=== PATIENT | male | born 1975 | race Caucasian/White ===

== ENCOUNTER 2018-07-11 17:05 | Inpatient (IN) | payer SELFPAY ==
[2018-07-11] VITALS: BP 125/67
[~2018-07-11] VITALS: Ht 170.2 cm; Wt 83.0 kg
[~2018-07-11 17:05] MED LIST: ACET-8386 PO; CIPR500T4 PO; TAMS0.4C96 PO
--- NOTE | 2018-07-11 17:10 | NUR ---
PT ARRIVED ON UNIT AT 1710. BEDSIDE REPORT GIVEN BY ED RN LINO, REPORTED THAT PT RECEIVED MORPHINE 15 MINS PRIOR TO ARRIVAL TO UNIT. PT AWAKE ABLE TO FOLLOW COMMANDS, IV IN RIGHT AC 20 G SL, PATENT AND DRESSING INTACT. AT BEDSIDE, NO REPORTS OF PAIN AT THIS TIME. NOTED SCANT BLOOD ON PENILE TIP. V/S: B/P 133/81, HR 64, RR 16, O2SAT 99%.BED IN LOWEST POSITION, CALL LIGHT WITHIN REACH.
[2018-07-11 17:13] VITALS: BP 135/84
--- NOTE | 2018-07-11 17:15 | NUR ---
PT AMBULATED TO ED BED 12 REPOERT TO KOBI JAVIER
[2018-07-11] MEDS ORDERED: NACL 0.9% 500 ML IV ONE (17:18)
[2018-07-11] MEDS ORDERED: KETOROLAC 30 MG/ML VIAL IVP ONE (17:20)
--- NOTE | 2018-07-11 17:30 | NUR ---
42M BIB WITH C/O 5/10 PENILE PAIN D/T "KIDNEY STONE STUCK IN PENIS". PT CAME FROM [facility]. PER PT, PT FOUND TO HAVE KIDNEY STONE BY PRIMARY PHYSICIAN AND WAS TOLD TO COME HERE TO BE EVALUATED. 5/10 PAIN IN BLADDER. DENIES N/V/D. PT IS AOX4 TO PERSON, PLACE, SITUATION, AND TIME. PT CHANGED INTO GOWN. PT POSITIONED TO COMFORT. WILL CONTINUE TO MONITOR.
[2018-07-11 17:58] LABS: APPEARANCE,URINE HAZY (CLEAR); BILIRUBIN,URINE NEGATIVE (NEGATIVE); BLOOD, URINE 3+ (NEGATIVE); COLOR,URINE RED (YELLOW); LEUKOCYTE ESTERASE ,URINE TRACE (NEGATIVE); NITRITE, URINE NEGATIVE (NEGATIVE); PH,URINE 6.5 (5.0-9.0); UGLUCOSE NEGATIVE (NEGATIVE)
--- NOTE | 2018-07-11 18:02 | NUR ---
PATIENT REFUSING IV AND IV MEDICATION AT THIS TIME. INFORMED ER MD SCHAEFFER.
[2018-07-11 18:16] LABS: RBC,URINE TOO NUMEROUS TO COUN /HPF (0-5); WBC,URINE 0-5 (RARE) /HPF (0-5)
--- NOTE | 2018-07-11 18:18 | NUR ---
ER MD SCHAEFFER BY BEDSIDE, ADMITTED TO EXTRACT PENILE STONE WITH CURVED AUERLIANO. BLEEDING NOTED TO PENILE OPENING BEFORE STARTING EXTRACTION. ER MD SCHAEFFER ABLE TO EXTRAST ONE PENILE STONE, APPROX 1.0 CM IN SIZE. PT TOLERATED WELL.
[2018-07-11] MEDS ORDERED: LIDOCAINE JELLY 2% 30 ML TUBE TP ONE (18:19)
[2018-07-11] MEDS ORDERED: MORPHINE SULFATE 2 MG/ML SYR IVP ONE (18:20)
[2018-07-11] MEDS ORDERED: NACL 0.9% 1,000 ML IV SCH (18:31)
[2018-07-11] MEDS ORDERED: ACETAMINOPHEN 325 MG TAB PO PRN (18:35)
[2018-07-11] MEDS ORDERED: HYDROcodone/APAP 7.5/325 MG 1 TAB PO PRN (18:35)
[2018-07-11] MEDS ORDERED: ONDANSETRON 4 MG/2 ML VIAL IVP PRN (18:35)
[2018-07-11 19:00] LABS: BASOPHILS # (AUTO) 0.1 K/uL (0.00-0.22); EOSINOPHILS # (AUTO) 0.2 K/uL (0-0.4); EOSINOPHILS % (AUTO) 2.7 % (0.0-4.0); HEMOGLOBIN 14.8 g/dL (12.0-18.0); LYMPHOCYTES # (AUTO) 1.5 K/uL (2.0-11.5); LYMPHOCYTES % (AUTO) 20.5 % (20.5-51.1); MEAN CORPUSCULAR HEMOGLOBIN 29 pg (27-31); MEAN CORPUSCULAR HGB CONC 34 g/dL (33-37); MEAN CORPUSCULAR VOLUME 84.9 fL (80-94); MONOCYTES # (AUTO) 0.6 K/uL (0.8-1.0); MONOCYTES % (AUTO) 8.3 % (1.7-9.3); NEUTROPHILS # (AUTO) 5.1 K/uL (1.8-7.7); NEUTROPHILS % (AUTO) 67.5 % (42.2-75.2); PLATELET COUNT (AUTO) 273 K/uL (140-450); RED BLOOD CELL COUNT(AUTO) 5.07 MIL/uL (4.20-6.10); RED CELL DISTRIBUTION WIDTH 13.6 % (11.6-13.7); WHITE BLOOD COUNT (AUTO) 7.5 K/uL (4.8-10.8)
--- NOTE | 2018-07-11 19:01 | NUR ---
Patient will be admitted to care of Nam. Admited to Med/Surg. Bedside will go to room 123-A. Belongings list completed. Bedside report to Aminata JAVIER.
--- NOTE | 2018-07-11 19:01 | NUR ---
PT TAKEN TO FLOOR BY YAYA PEACE AND EMT REESE
[2018-07-11 19:31] LABS: ANION GAP 14.3 (8-16); CARBON DIOXIDE 24.5 mmol/L (21-32); CREATININE 0.8 mg/dL (0.7-1.3); POTASSIUM 3.8 mmol/L (3.5-5.1)
[2018-07-11 19:34] LABS: CHOL/HDL RATIO 5.1 (1-4.5); FREE T4 (FREE THYROXINE) 0.96 ng/dL (0.76-1.46); MAGNESIUM 2.1 mg/dL (1.8-2.4); THYROID STIMULATING HORMONE 1.13 uIU/mL (0.34-3.74)
[2018-07-11 19:35] LABS: ALBUMIN 3.7 g/dL (3.4-5.0); TOTAL BILIRUBIN 1.2 mg/dL (0.0-1.0)
[2018-07-11 19:35] LABS: BARBITURATE, URINE NEG. ng/ml (NEG <=200); BENZODIAZEPINE, URINE NEG. ng/mL (NEG <=200); CANNABINOID, URINE NEG. ng/mL (NEG <=50); COCAINE, URINE NEG. ng/mL (NEG <=300); OPIATE, URINE NEG. ng/mL (NEG <=2000); PHENCYCLIDINE SCREEN,URINE NEG. ng/mL (NEG <=25)
[2018-07-11 20:05] LABS: PROTHROMBIN TIME 10.4 secs (10.8-13.4)
[2018-07-11] MEDS: TAMSULOSIN 0.4 MG CAP PO SCH (20:43)
[2018-07-11] MEDS: DOCUSATE SODIUM 100 MG GELCAP PO SCH (20:43)
--- NOTE | 2018-07-11 20:43 | NUR ---
DUE MEDICATIONS GIVEN PT TOLERATED WELL, SCD APPLIED TO PT, MRSA SAMPLE TAKEN WILL SEND TO LAB. CALL LIGHT WITHIN REACH WILL CONTINUE TO MONITOR.
--- NOTE | 2018-07-11 21:30 | NUR ---
20 ML OF BLOODY URINE NOTED. WILL CONTINUE TO MONITOR.
--- NOTE | 2018-07-11 21:48 | NUR ---
PT LEFT TO CT SCAN OF ABDOMEN. PT STABLE.
--- NOTE | 2018-07-11 22:30 | NUR ---
LENS ASSISTANT [facility] #[id number] USED FOR ADMISSION.
--- NOTE | 2018-07-11 22:40 | NUR ---
PICTURE OF PENILE WOUND TAKEN AND IN CHART.
[2018-07-12] VITALS: BP 125/67
--- NOTE | 2018-07-12 00:37 | NUR ---
DISREGARD V/S NOTE FOR 07/11 0000.
[2018-07-12] MEDS: KETOROLAC 15 MG/ML VIAL IVP SCH ×4 (00:49→18:00)
--- NOTE | 2018-07-12 03:40 | NUR ---
PT ASLEEP IN BED, NO SIGNS OF ACUTE DISTRESS, CALL LIGHT WITHIN REACH, WILL CONTINUE TO MONITOR.
--- NOTE | 2018-07-12 04:30 | NUR ---
URINE OUTPUT 400 ML DARK YELLOW URINE, NO BLOOD VISIBLE, STRAINED URINE AND NO SEDIMENTS SEEN. WILL CONTINUE TO MONITOR.
--- NOTE | 2018-07-12 06:03 | NUR ---
PT STATED "NO" WHEN ASKED IF IN PAIN. PT STATED "NO THANK YOU" WHEN ASKED IF NEEDED SCHEDULED TORADOL. WILL HOLD TORADOL.
[2018-07-12] MEDS: DEXT 5% / NACL 0.45% 1,000 ML IV SCH (06:08)
[2018-07-12 06:41] LABS: BASOPHILS # (AUTO) 0.1 K/uL (0.00-0.22); BASOPHILS % (AUTO) 1.4 % (0.0-2.0); EOSINOPHILS # (AUTO) 0.2 K/uL (0-0.4); EOSINOPHILS % (AUTO) 2.3 % (0.0-4.0); HEMATOCRIT 43.5 % (36-52); LYMPHOCYTES # (AUTO) 1.5 K/uL (2.0-11.5); LYMPHOCYTES % (AUTO) 22.4 % (20.5-51.1); MEAN CORPUSCULAR HEMOGLOBIN 29 pg (27-31); MEAN CORPUSCULAR HGB CONC 35 g/dL (33-37); MEAN CORPUSCULAR VOLUME 84.7 fL (80-94); MONOCYTES # (AUTO) 0.4 K/uL (0.8-1.0); MONOCYTES % (AUTO) 6.5 % (1.7-9.3); NEUTROPHILS # (AUTO) 4.6 K/uL (1.8-7.7); NEUTROPHILS % (AUTO) 67.4 % (42.2-75.2); PLATELET COUNT (AUTO) 257 K/uL (140-450); RED BLOOD CELL COUNT(AUTO) 5.13 MIL/uL (4.20-6.10); RED CELL DISTRIBUTION WIDTH 13.6 % (11.6-13.7); WHITE BLOOD COUNT (AUTO) 6.8 K/uL (4.8-10.8)
[2018-07-12 06:58] LABS: ANION GAP 12.2 (8-16); CARBON DIOXIDE 25.5 mmol/L (21-32); CREATININE 0.9 mg/dL (0.7-1.3); PHOSPHORUS 3.2 mg/dL (2.5-4.9); POTASSIUM 3.7 mmol/L (3.5-5.1)
--- NOTE | 2018-07-12 07:05 | NUR ---
BEDSIDE REPORT GIVEN TO DAY SHIFT RN YOSEF, PT STABLE.
--- NOTE | 2018-07-12 07:17 | NUR ---
BEDSIDE REPORT GIVEN TO DAY SHIFT ALBIN LUNDBERG. Addendum: 07/12/18 at 0721 by Aminata Us RN TIME 0705
--- NOTE | 2018-07-12 07:20 | NUR ---
RECEIVED REPORT FROM STERILIZATION TECHNICIAN NURSE, PT IS RESTING IN BED, AAOX4, AMBULATORY, IV IS ON THE RIGHT AC, PATENT, INTACT, FLUSHING WELL, NO S/S OF RESPIRATORY DISTRESS OR DISCOMFORT NOTED, DISCUSSED PLAN OF CARE WITH PT, PT VERBALIZED UNDERSTANDING, SAFETY/FALL PRECAUTIONS ARE IN PLACE, CALL LIGHT IS WITHIN REACH, WILL CONTINUE TO MONITOR.
[2018-07-12 08:00] VITALS: BP 120/74
[2018-07-12] MEDS: DOCUSATE SODIUM 100 MG GELCAP PO SCH ×2 (08:29→20:11)
--- NOTE | 2018-07-12 08:49 | NUR ---
PATIENT HAS BEEN SCREENED AND CATEGORIZED HIGH NUTRITION RISK. PATIENT WILL BE SEEN WITHIN 1-2 DAYS OF ADMISSION. 07/12/18 07/13/[address]
--- NOTE | 2018-07-12 12:26 | NUR ---
PT IS RESTING IN BED, NO S/S OF RESPIRATORY DISTRESS OR DISCOMFORT NOTED, FAMILY IS AT BEDSIDE, CALL LIGHT WITHIN REACH.
--- NOTE | 2018-07-12 13:31 | NUR ---
07/12/18 RD INITIAL ASSESSMENT COMPLETED PLEASE REFER TO NUTRITION ASSESSMENT UNDER CARE ACTIVITY FOR ESTIMATED NUTRITIONAL NEEDS. 1. CONTINUE NPO DIET TOLERATED 2. EDUCATION ON LOW CHOLESTEROL AND LOW NA DIET TO BE PROVIDED. 3. IF/WHEN MEDICALLY STABLE, CONSIDER ADVANCING DIET TO CARDIAC TOLERATED. 4. RD TO FOLLOW-UP 3-5 DAYS, MODERATE RISK. KEL CARRASQUILLO, RD
[2018-07-12 16:00] VITALS: BP 120/72
--- NOTE | 2018-07-12 17:00 | NUR ---
SPOKE TO DR. VARGHESE TO LET HIM KNOW THE PATIENT WAS ASKING WHAT TIME UROLOGIST WAS GOING TO COME IN AND IF HE COULD HAVE SOMETHING TO EAT. PER DR. VARGHESE, DR. DE THE UROLOGIST IS AWARE OF THE CONSULT BUT HE DOES NOT KNOW WHAT TIME HE WILL BE COMING IN. DR. VARGHESE SAID HE WOULD CHECK WITH DR. KEN IF PATIENT COULD EAT.
--- NOTE | 2018-07-12 19:15 | NUR ---
ENDORSED PT TO GUARD SUPERVISOR NURSE FOR CONTINUITY OF CARE. PT STABLE AT THIS TIME.
--- NOTE | 2018-07-12 19:16 | NUR ---
RECEIVED REPORT FROM DAYSHIFT NURSE AT BEDSIDE FOR CONTINUITY OF CARE.PT IV NOTED RAC 20G D5 1/2 NS 10ML/HR. NO SOB NO S/S OF DISTRESS ON ROOM AIR. AMBULATORY. PT HAS URINAL AT BEDSIDE AND STRAINS HIS URINE BY HIMSELF. BED LOWERED CALL LIGHT WITHIN REACH WILL CONTINUE TO MONITOR. SAMI SPEAKING PT.
--- NOTE | 2018-07-12 20:00 | NUR ---
SPOKE TO ABOUT IF UROLOGIST CONSULT WILL BE COMING TONIGHT HE STATED HE WOULD CALL MD. ALSO ASKED IF WE CAN PUT PT ON A REGULAR DIET UNTIL MIDNIGHT BECAUSE PT HAD BEEN NPO FOR MORE THAN 12HRS. MD AGREED AND GAVE PT SANDWICH. ORDER WAS PUT IN. WILL CONTINUE TO MONITOR.
[2018-07-12] MEDS: TAMSULOSIN 0.4 MG CAP PO SCH (20:10)
[2018-07-13] VITALS: BP 132/80
[2018-07-13] MEDS: KETOROLAC 15 MG/ML VIAL IVP SCH ×5 (00:30→23:32)
--- NOTE | 2018-07-13 01:30 | NUR ---
PT HAS PAIN IN PENIS WHILE TRYING TO URINATE MEDICATED WITH TORADOL 1HR. PAIN MEDICINE EFFECTIVE PT IS SLEEPING WILL CONTINUE TO MONITOR.
[2018-07-13] MEDS: DEXT 5% / NACL 0.45% 1,000 ML IV SCH (03:56)
--- NOTE | 2018-07-13 06:48 | NUR ---
ADMIN TORADOL FOR PAIN 1HR AGO. PT CURRENTLY SLEEPING. PAIN MED EFFECTIVE.
--- NOTE | 2018-07-13 07:28 | NUR ---
ENDORSED REPORT TO DAYSHIFT NURSE AT BEDSIDE FOR CONTINUITY OF CARE.
--- NOTE | 2018-07-13 07:35 | NUR ---
RECEIVED REPORT FROM C ENGINEER NURSE, PT IS RESTING IN BED, AAOX4, AMBULATORY, IV IS ON THE RIGHT AC, PATENT, INTACT, FLUSHING WELL, NO S/S OF RESPIRATORY DISTRESS OR DISCOMFORT NOTED, DISCUSSED PLAN OF CARE WITH PT, PT VERBALIZED UNDERSTANDING, SAFETY/FALL PRECAUTIONS ARE IN PLACE, CALL LIGHT IS WITHIN REACH, WILL CONTINUE TO MONITOR.
[2018-07-13 08:00] VITALS: BP 112/70
[2018-07-13] MEDS: DOCUSATE SODIUM 100 MG GELCAP PO SCH ×2 (09:26→20:48)
--- NOTE | 2018-07-13 09:26 | NUR ---
DUE MEDICATIONS GIVEN. PT TOLERATED WELL, CALL LIGHT WITHIN REACH.
--- NOTE | 2018-07-13 11:20 | NUR ---
PT RESTING IN BED, NO S/S OF DISTRESS NOTED, FAMILY IS AT BEDSIDE. CALL LIGHT WITHIN REACH.
--- NOTE | 2018-07-13 12:40 | NUR ---
PATIENT TAKEN OFF UNIT TAKEN TO OR FOR PROCEDURE.
[2018-07-13] MEDS ORDERED: PROPOFOL 200 MG/20 ML VIAL IV ONE (13:52)
[2018-07-13] MEDS ORDERED: SEVOFLURANE 250 ML BTL INH ONE (13:52)
[2018-07-13] MEDS ORDERED: ONDANSETRON 4 MG/2 ML VIAL ONE (13:52)
[2018-07-13] MEDS ORDERED: DEXAMETHASONE 4 MG/ML VIAL ONE (13:52)
[2018-07-13] MEDS ORDERED: fentaNYL 0.05 MG/ML VIAL ONE (13:57)
[2018-07-13] MEDS ORDERED: ceFAZolin 1,000 MG VIAL ONE (14:13)
--- NOTE | 2018-07-13 15:50 | NUR ---
PT RETURNED TO UNIT VIA GURNEY. PT IS AAOX4, NO S/S OF DISTRESS NOTED. PT HAS CRISOSTOMO CATHETER IN PLACE AT THIS TIME.
[2018-07-13 16:00] VITALS: BP 114/70
--- NOTE | 2018-07-13 19:21 | NUR ---
ENDORSED PT TO ANESTHESIA DIRECTOR NURSE FOR CONTINUITY OF CARE. PT STABLE AT THIS TIME. FAMILY IS AT BEDSIDE.
--- NOTE | 2018-07-13 19:22 | NUR ---
RECEIVED PT AWAKE ON BED TALKING TO FAMILY MEMBERS AT BEDSIDE, DENIES PAIN, CRISOSTOMO CATHETER IN PLACE DRAINING STRAW YELLOW URINE, NO BLEEDING NOTED, PER PT TOLERATING CLEAR LIQUID DIET, IVF INFUSING WELL, PLAN OF CARE DISCUSSED, CALL LIGHT WITHIN REACH.
[2018-07-13] MEDS: TAMSULOSIN 0.4 MG CAP PO SCH (20:46)
--- NOTE | 2018-07-13 21:00 | NUR ---
COMPLAINING OF PAIN, MEDICATED PRN WITH NORCO, ALL NEEDS ATTENDED.
--- NOTE | 2018-07-13 23:35 | NUR ---
VITAL SIGNS STABLE, PT WITH PAIN, DUE TORADOL IVP ADMINISTERED, NOTICED MINIMAL BLOOD ON CRISOSTOMO CATHETER TUBING, NO CLOTS NOTED, WILL CONTINUE TO MONITOR FOR BLEEDING, IVF INFUSING WELL.
[2018-07-14] VITALS: BP 102/58
--- NOTE | 2018-07-14 04:00 | NUR ---
ROUNDS MADE, PT SLEEPING, NO SIGNS OF DISTRESS, MINIMAL BLOOD NOTED ON CRISOSTOMO CATHETER TUBING, NO CLOTS NOTED, CONTINUE TO MONITOR CLOSELY.
[2018-07-14] MEDS: DEXT 5% / NACL 0.45% 1,000 ML IV SCH (05:40)
[2018-07-14] MEDS: KETOROLAC 15 MG/ML VIAL IVP SCH ×2 (05:41→12:10)
--- NOTE | 2018-07-14 05:51 | NUR ---
PT AWAKE COMPLAINING OF PAIN, MEDICATED WITH DUE TORADOL IVP, PINK URINE OUTPUT NOTED ON THE CRISOSTOMO CATH TUBING, NO CLOTS NOTED, EMPTIED 1100ML ON THE CRISOSTOMO CATHETER, MONITORED CLOSELY.
[2018-07-14 07:10] LABS: BASOPHILS % (AUTO) 0.6 % (0.0-2.0); EOSINOPHILS # (AUTO) 0.1 K/uL (0-0.4); EOSINOPHILS % (AUTO) 0.6 % (0.0-4.0); HEMATOCRIT 46.1 % (36-52); LYMPHOCYTES # (AUTO) 1.4 K/uL (2.0-11.5); LYMPHOCYTES % (AUTO) 17.1 % (20.5-51.1); MEAN CORPUSCULAR HEMOGLOBIN 29 pg (27-31); MEAN CORPUSCULAR HGB CONC 35 g/dL (33-37); MEAN CORPUSCULAR VOLUME 84.4 fL (80-94); MONOCYTES # (AUTO) 0.4 K/uL (0.8-1.0); MONOCYTES % (AUTO) 4.9 % (1.7-9.3); NEUTROPHILS # (AUTO) 6.5 K/uL (1.8-7.7); NEUTROPHILS % (AUTO) 76.8 % (42.2-75.2); PLATELET COUNT (AUTO) 280 K/uL (140-450); RED BLOOD CELL COUNT(AUTO) 5.46 MIL/uL (4.20-6.10); RED CELL DISTRIBUTION WIDTH 13.2 % (11.6-13.7); WHITE BLOOD COUNT (AUTO) 8.5 K/uL (4.8-10.8)
--- NOTE | 2018-07-14 07:10 | NUR ---
PT SLEEPING, NO SIGNS OF DISTRESS, BEDSIDE REPORT GIVEN TO DAVID SPRINGER FOR CONTINUITY OF CARE.
[2018-07-14 07:23] LABS: MAGNESIUM 2.2 mg/dL (1.8-2.4); PHOSPHORUS 3.8 mg/dL (2.5-4.9)
[2018-07-14 07:28] LABS: ANION GAP 10.3 (8-16); CARBON DIOXIDE 28.4 mmol/L (21-32); CREATININE 0.7 mg/dL (0.7-1.3); POTASSIUM 3.7 mmol/L (3.5-5.1)
--- NOTE | 2018-07-14 07:40 | NUR ---
PT NONCOMPLIANT AT THIS TIME Addendum: 07/14/18 at 0746 by Manas Ag RT INPUT ERROR WRONG PT
--- NOTE | 2018-07-14 07:52 | NUR ---
DR. PECK, RESIDENTS MD, AND CHARGE NURSE CAME AT PT. BEDSIDE FOR AM PT. ROUNDS.
[2018-07-14 08:00] VITALS: BP 121/67
[2018-07-14] MEDS: DOCUSATE SODIUM 100 MG GELCAP PO SCH (08:56)
--- NOTE | 2018-07-14 11:30 | NUR ---
SEEN WATCHING TV AT THIS TIME. NO DISCOMFORT NOTICED. CALL LIGHT WITHIN REACH.
[2018-07-14 12:00] VITALS: BP 137/77
[2018-07-14] MEDS ORDERED: ACET-8386 PO (13:22)
--- NOTE | 2018-07-14 14:20 | NUR ---
USED [employer] WITH HELMET BINDER NUMBER [id number]. EXPLAINED TO PT. ABOUT MD D/C ORDER, D/C INSTRUCTIONS AND TEACHING, MD D/C PRESCRIPTION LIST EDUCATION, [facility] FOLLOW UP IN 1 WEEK WITH PHONE NUMBER , CRISOSTOMO CATHETER MANAGEMENT EDUCATION, PAIN MANAGEMENT TEACHING, DIET, DISEASE MANAGEMENT TEACHING. VERBALIZED UNDERSTANDING. REFUSED PHOTO TAKEN ON TEAR AT PENILE.
--- NOTE | 2018-07-14 16:05 | NUR ---
D/C HOME VIA WHEELCHAIR ACCOMPANIED BY PT. . AWAKE, ALERT, AND ORIENTED X4. SPEECH CLEAR. NO C/O PAIN. NO SOB, NOTED. IN STABLE CONDITION. INFORMED CHARGE NURSE CA FARAH.
== END 2018-07-14 16:05 | disposition home or self-care (01) | DRG 694 ==
LOC: MED 17:05 → MTU 18:49
PROVIDERS: ADMIT General Practice; ATTEND General Practice
PROC: 0T7D8DZ Dilation of Urethra with Intraluminal Device, Via Natural or Artificial Opening Endoscopic (ICD-10-PCS; 2018-07-13)
PROC: 0TCD8ZZ Extirpation of Matter from Urethra, Via Natural or Artificial Opening Endoscopic (ICD-10-PCS; principal; 2018-07-13 13:00)
DX: N21.1 Calculus in urethra (principal); N48.89 Other specified disorders of penis; E78.5 Hyperlipidemia, unspecified; Z79.899 Other long term (current) drug therapy; Z87.442 Personal history of urinary calculi; E83.51 Hypocalcemia
CPT/HCPCS: 36415; 71045; 80048; 80053; 80305; 81001; 82150; 83036; 83690; 83735; 83880; 84100; 84439; 84443; 84484; 85025; 85610; 85730; 87081; 87086; 88300; 93005; 96361; 96374; 96375; 99285; C1758; C1769; J0690; J1100; J1885; J2270; J2405; J2704; J3010; J7030; Q0092